=== PATIENT | male | born 1965 | race Caucasian/White ===

== ENCOUNTER 2021-01-19 09:38 | Emergency (ER) | payer OTHER ==
[~2021-01-19 09:38] MED LIST: CEFDINIR300 MG PO; PYRIDIUM100 M1 PO
[2021-01-19 10:56] LABS: BILIRUBIN NEGATIVE (NEGATIVE); BLOOD NEGATIVE Ery/uL (NEGATIVE); CLARITY CLEAR (CLEAR); COLOR YELLOW (YELLOW); GLUCOSE (U) NORMAL (NORMAL); LEUKOCYTES NEGATIVE Leu/uL (NEGATIVE); NITRITE NEGATIVE (NEGATIVE); PROTEIN NEGATIVE (NEGATIVE); SPECIFIC GRAVITY >=1.030 (1.001-1.030); UROBILINOGEN 0.2 mg/dL (0.2-1.0); pH 5.5 (5.0-9.0)
[2021-01-19] MEDS ORDERED: NAPROXEN500 MG PO (11:41)
[2021-01-19] MEDS ORDERED: CYCLOBENZAPRINE10 MG PO (11:41)
== END 2021-01-19 11:53 | disposition home or self-care (01) ==
LOC: FER 09:38
PROVIDERS: Emergency Medicine
DX: S39.012A Strain of muscle, fascia and tendon of lower back, initial encounter (principal); X50.9XXA Other and unspecified overexertion or strenuous movements or postures, initial encounter
CPT/HCPCS: 81003; 99283